=== PATIENT | female | born 1960 | race Caucasian/White ===

== ENCOUNTER → 2017-08-27 | Outpatient (CLI) | payer MEDICARE ==
[2017-07-19 13:30] VITALS: BMI 37.1
[~2017-08-27] MED LIST: ALLO100T70 PO; ALPR-460 PO; AMBIEN; AMI25 PO; AMIT75TA42 PO; ASPI-1471 PO; ASPI-757 PO; ATOR10TA24 PO; CEPH500C24 PO; CHOL100052 PO; CLOB15CR22 TP; CYA1000 PO; CYCL-277 PO; DICL100G39; DOCU-416 PO; GABA-549 PO; GEMF600T91 PO; GOLYTE PO; HCTZ; HYDR-319 PO; HYDR-389 PO; HYDR-4305 PO; HYDR-4309 PO; KET10 PO; LOR7.5/325 PO; MELO-205 PO; MELO-207 PO; MELOXICAM; MEPE50TA29 PO; MORP-18 PO; MORP-46 PO; OMEGA 3; ONDA4TAB PO; PANT40TA65 PO; POLY17PO25 PO; POTASSIUM; QUI20 PO; TOPI-23 PO; TRAZ-156 PO; TRAZ150T8 PO; VENL150T10 PO; VENL75TA98 PO; VITAMINS; [UNRECOGNIZED DRUG - OTHER]
[2017-08-27 10:55] LABS: LDL CHOLESTEROL 41 mg/dl
== END ==
LOC: LAB 10:11
PROVIDERS: ATTEND Nurse Practitioner Family
DX: I49.8 Other specified cardiac arrhythmias (principal); I49.9 Cardiac arrhythmia, unspecified; G89.4 Chronic pain syndrome; E21.5 Disorder of parathyroid gland, unspecified; R74.0 Nonspecific elevation of levels of transaminase and lactic acid dehydrogenase [LDH]; E83.52 Hypercalcemia; E21.3 Hyperparathyroidism, unspecified; R73.01 Impaired fasting glucose; R41.3 Other amnesia; G47.30 Sleep apnea, unspecified; I45.81 Long QT syndrome; E78.00 Pure hypercholesterolemia, unspecified; E21.1 Secondary hyperparathyroidism, not elsewhere classified
CPT/HCPCS: 36415; 82040; 82247; 82310; 82374; 82435; 82465; 82565; 82607; 82947; 83036; 83090; 83718; 83970; 84075; 84132; 84155; 84295; 84450; 84460; 84478; 84520; 86140

== ENCOUNTER → 2017-08-30 | Outpatient (REF) | payer MEDICARE ==
[2017-07-19 13:30] VITALS: BMI 37.1
== END ==
LOC: ZZSENDIN 08:25
PROVIDERS: ATTEND Nurse Practitioner Family
DX: I49.9 Cardiac arrhythmia, unspecified (principal); E83.52 Hypercalcemia; R53.83 Other fatigue
CPT/HCPCS: 83735

== ENCOUNTER → 2017-09-04 | Outpatient (CLI) | payer MEDICARE ==
[2017-07-19 13:30] VITALS: BMI 37.1
== END ==
LOC: RESP 06:38
PROVIDERS: ATTEND Nurse Practitioner Family
DX: J44.9 Chronic obstructive pulmonary disease, unspecified (principal); J98.4 Other disorders of lung
CPT/HCPCS: 94060; 94726; 94729

== ENCOUNTER → 2017-11-26 | Outpatient (CLI) | payer MEDICARE ==
[2017-07-19 13:30] VITALS: BMI 37.1
== END ==
LOC: LAB 11:50
PROVIDERS: ATTEND Nurse Practitioner Family
DX: I49.8 Other specified cardiac arrhythmias (principal); I49.9 Cardiac arrhythmia, unspecified; R74.0 Nonspecific elevation of levels of transaminase and lactic acid dehydrogenase [LDH]; M10.00 Idiopathic gout, unspecified site; E83.52 Hypercalcemia; E21.3 Hyperparathyroidism, unspecified; R73.01 Impaired fasting glucose; K46.9 Unspecified abdominal hernia without obstruction or gangrene; R53.83 Other fatigue; R41.3 Other amnesia; E21.0 Primary hyperparathyroidism; I45.81 Long QT syndrome; E78.00 Pure hypercholesterolemia, unspecified; E55.9 Vitamin D deficiency, unspecified
CPT/HCPCS: 36415; 82040; 82247; 82306; 82310; 82374; 82435; 82565; 82947; 83735; 83970; 84075; 84132; 84155; 84295; 84450; 84460; 84520

== ENCOUNTER → 2017-11-26 | Outpatient (CLI) | payer MEDICARE ==
[2017-07-19 13:30] VITALS: BMI 37.1
--- NOTE | 2017-11-26 13:36 | RADIOLOGY IMAGING REPORT ---
FACILITY: [facility] PATIENT NAME: Marina Scott : 1960 MR: [id number] V: [id number] EXAM DATE: ORDERING PHYSICIAN: FRANCISCO FRANCIS TECHNOLOGIST: Location: [facility] - [place] Patient: Marina Scott : 1960 Visit/Account:[id number] Date of Sevice: 11/26/2017 Exam type: CERVICAL SPINE 2 OR 3 VIEW History: Neck pain, neck surgery in 1999 Comparison: MR C-spine October 27, 2015. Findings: There are postsurgical changes from anterior fusion at C6-7. This moderate disc space narrowing at C 5-6 with anterior osteophyte formation which appears more pronounced when compared to the prior study . Mild disc space narrowing at C7-T1 also appears slightly increased.. This mild disc space narrowi ng at C4-5 relatively unchanged with small anterior osteophytes. There is no evidence of acute fract ure or subluxation or prevertebral soft tissue swelling. IMPRESSION: 1. Postsurgical changes from anterior fusion at C6-7 Increasing disc space narrowing at C5-6 and C7-T1 Report Dictated By: Gertrude Novak MD at 11/26/2017 1:27 PM Report E-Signed By: Gertrude Novak MD at 11/26/2017 1:32 PM WSN:[email or web address]
== END ==
LOC: RAD 12:14
DX: M48.03 Spinal stenosis, cervicothoracic region (principal); Z96.7 Presence of other bone and tendon implants
CPT/HCPCS: 72040

== ENCOUNTER → 2017-12-05 | Outpatient (CLI) | payer MEDICARE ==
[2017-07-19 13:30] VITALS: BMI 37.1
== END ==
LOC: RESP 02:09
PROVIDERS: ATTEND Nurse Practitioner Family
DX: Z02.9 Encounter for administrative examinations, unspecified (principal)

== ENCOUNTER → 2018-01-09 | Outpatient (RCR) | payer MEDICARE ==
[2017-07-19 13:30] VITALS: BMI 37.1
== END ==
LOC: RESP 12-05 09:58
PROVIDERS: ATTEND Nurse Practitioner Family
DX: I49.9 Cardiac arrhythmia, unspecified (principal); R09.02 Hypoxemia; J44.9 Chronic obstructive pulmonary disease, unspecified
CPT/HCPCS: 94618; G0239

== ENCOUNTER → 2018-02-18 | Outpatient (RCR) | payer MEDICARE ==
[2017-07-19 13:30] VITALS: BMI 37.1
== END ==
LOC: RESP 01-14 09:00
PROVIDERS: ATTEND Nurse Practitioner Family
DX: I49.9 Cardiac arrhythmia, unspecified (principal); R09.02 Hypoxemia; J44.9 Chronic obstructive pulmonary disease, unspecified
CPT/HCPCS: 94618; G0239

== ENCOUNTER 2018-03-04 12:30 | Outpatient (RCR) | payer MEDICARE ==
[2017-07-19 13:30] VITALS: BMI 37.1
[~2018-03-04 12:30] MED LIST changes: -GEMF600T91 PO; +GEMF600T92 PO; -TRAZ-156 PO; +TRAZ50TA34 PO
== END 2018-03-27 ==
LOC: RESP 12:30
PROVIDERS: ATTEND Nurse Practitioner Family
DX: I49.9 Cardiac arrhythmia, unspecified (principal); R09.02 Hypoxemia; J44.9 Chronic obstructive pulmonary disease, unspecified
CPT/HCPCS: 94618; G0239

== ENCOUNTER → 2018-03-11 | Outpatient (CLI) | payer MEDICARE ==
[2017-07-19 13:30] VITALS: BMI 37.1
[~2018-03-11] MED LIST changes: +GEMF600T91 PO; -GEMF600T92 PO
--- NOTE | 2018-03-11 16:54 | RADIOLOGY IMAGING REPORT ---
FACILITY: [facility] - [place] PATIENT NAME: Marina Scott : 1960 MR: [id number] V: [id number] EXAM DATE: ORDERING PHYSICIAN: JACQUELINE GUERIN TECHNOLOGIST: Location: [facility] - [place] Patient: Marina Scott : 1960 Visit/Account:[id number] Date of Sevice: 03/11/2018 MRI SHOULDER LEFT W/O CONTRAST HISTORY: Shoulder pain COMPARISON: None TECHNIQUE: Multiplanar/multisequence was obtained through the left shoulder without contrast. Contrast: None FINDINGS: Rotator cuff: Mild tendinosis of the supraspinatus tendon with articular surface fraying as well as m ild intrasubstance tearing at the critical zone. Infraspinatus tendon is normal. Teres minor tendon i s normal. Subscapularis tendon is intact. No full-thickness tear of the rotator cuff. No tendinous re traction or muscular atrophy. Subacromial/subdeltoid fluid: Small amount Joint effusion: Small joint effusion. Moderate fluid within the biceps tendon sheath. Mild synovitis versus tiny loose bodies at the inferior axillary pouch. Biceps tendon: Resides within the bicipital groove and is intact to the labrum without signal abnorma lity. Glenohumeral joint and labrum: Mild thinning of the articular cartilage especially involving the post erior glenoid. No cartilaginous defect. Nondisplaced tearing of the superior labrum just posterior to the biceps anchor without paralabral cyst. AC joint : Moderate proliferative changes with inferior bony spurs. Small amount of fluid at the AC i nterval with mild bone marrow edema. No significant lateral acromial downsloping. Acromium is type II . Bone marrow: Normal Soft tissues: Normal Other findings: None significant IMPRESSION: 1. Mild tendinosis of the supraspinatus tendon with articular surface fraying and mild intrasubstance tearing. No full-thickness tear of the rotator cuff. 2. Small amount of subacromial/subdeltoid fluid. 3. Mild chondrosis at the glenohumeral joint with nondisplaced degenerative tearing of the superior l abrum. 4. Small joint effusion with questionable tiny loose bodies versus focal synovitis at the inferior ax illary pouch Report Dictated By: Bret Baumann MD at 03/11/2018 4:44 PM Report E-Signed By: Bret Baumann MD at 03/11/2018 4:50 PM WSN:[id number]
== END ==
LOC: MRI 01:57
PROVIDERS: ATTEND Clinical Nurse Specialist Family Health
DX: M70.812 Other soft tissue disorders related to use, overuse and pressure, left shoulder (principal); M25.412 Effusion, left shoulder

== ENCOUNTER → 2018-04-24 | Outpatient (CLI) | payer MEDICARE ==
[2017-07-19 13:30] VITALS: BMI 37.1
[~2018-04-24] MED LIST changes: -GEMF600T91 PO; +GEMF600T92 PO
== END ==
LOC: LAB 11:39
PROVIDERS: ATTEND Nurse Practitioner Family
DX: R63.0 Anorexia (principal); I49.8 Other specified cardiac arrhythmias; I49.9 Cardiac arrhythmia, unspecified; E21.5 Disorder of parathyroid gland, unspecified; R74.0 Nonspecific elevation of levels of transaminase and lactic acid dehydrogenase [LDH]; Z82.62 Family history of osteoporosis; E83.52 Hypercalcemia; E21.3 Hyperparathyroidism, unspecified; E21.1 Secondary hyperparathyroidism, not elsewhere classified; E21.0 Primary hyperparathyroidism; E55.9 Vitamin D deficiency, unspecified
CPT/HCPCS: 36415; 82040; 82247; 82306; 82310; 82374; 82435; 82565; 82947; 83735; 83970; 84075; 84132; 84155; 84295; 84443; 84450; 84460; 84520

== ENCOUNTER → 2018-05-12 | Outpatient (CLI) | payer MEDICARE ==
[2017-07-19 13:30] VITALS: BMI 37.1
[~2018-05-12] MED LIST changes: +GADOBENATE 529MG/1ML 15ML VIAL IVP ONE
--- NOTE | 2018-05-12 12:06 | RADIOLOGY IMAGING REPORT ---
[place] [facility] [place] Marina [place] : 1960 MR: [id number] V: [id number] EXAM DATE: ORDERING PHYSICIAN: JACQUELINE GUERIN TECHNOLOGIST: Location: [facility] - [place] Patient: Marina Scott : 1960 Visit/Account:[id number] Date of Sevice: 05/12/2018 L SPINE W W/O CONTRAST COMPARISON: Views of the lumbar spine dated May 10, 2010 Additional pertinent history: Low back pain and hip pain. Technique: Multiplanar multisequence lumbar spine MRI was performed with and without gadolinium enhan cement. Contrast: 15 ml of MultiHance FINDINGS: Disclaimer: The examination is significantly limited at the levels of L4-L5 and L5-S1 related to meta llic artifact. Postoperative changes: Patient status post posterior interbody fusion of L4-S1. Vertebral body heights and alignment: Minimal grade 1 anterior listhesis of L3 on L4. Vertebral marrow signal: Not well evaluated at the levels of L4 on L5. Marrow signal is normal invol ving the upper lumbar spine. Distal thoracic cord and conus: Negative. The conus ends at T12-L1. Surrounding soft tissues: Negative. Inspection of the disc spaces reveal the following: L5-S1: Not well evaluated secondary to metallic artifact. L4-L5: Not well evaluated secondary to metallic artifact. L3-L4: Slightly limited secondary to metallic artifact however no significant disc bulge or disc prot rusion. No significant canal or neural foraminal narrowing. L2-L3: Circumferential disc bulging with facet hypertrophic changes. No significant canal or neural foraminal narrowing. L1-L2: Minimal circumferential disc bulging with facet hypertrophic changes. No significant canal or neural foraminal narrowing. T12-L1: Negative. Pathologic enhancement: Negative. IMPRESSION: 1. Postoperative changes involving the lower lumbar spine limiting evaluation at the levels of L4-L5 and L5-S1. 2. Mild spondylitic change about these levels without significant canal or neural foraminal narrowin g. Report Dictated By: Robbie Saavedra MD at 05/12/2018 11:58 AM Report E-Signed By: Robbie Saavedra MD at 05/12/2018 12:03 PM WSN:[id number]
== END ==
LOC: MRI 05:11
PROVIDERS: ATTEND Clinical Nurse Specialist Family Health
DX: M47.896 Other spondylosis, lumbar region (principal); Z98.890 Other specified postprocedural states
CPT/HCPCS: 72158; A9577

== ENCOUNTER → 2018-06-05 | Outpatient (CLI) | payer MEDICARE ==
[2017-07-19 13:30] VITALS: BMI 37.1
[~2018-06-05] MED LIST changes: -GADOBENATE 529MG/1ML 15ML VIAL IVP ONE; -HYDR-4305 PO; -HYDR-4309 PO; +HYDR-627 PO; +HYDR-653 PO
== END ==
LOC: LAB 08:12
PROVIDERS: ATTEND Nurse Practitioner Family
DX: E21.1 Secondary hyperparathyroidism, not elsewhere classified (principal); R25.2 Cramp and spasm
CPT/HCPCS: 36415; 82040; 82247; 82310; 82374; 82435; 82565; 82947; 83735; 84075; 84100; 84132; 84155; 84295; 84450; 84460; 84520

== ENCOUNTER → 2018-10-21 | Outpatient (CLI) | payer MEDICARE ==
[2017-07-19 13:30] VITALS: BMI 37.1
[~2018-10-21] MED LIST changes: -GEMF600T92 PO; +GEMF600T96 PO
--- NOTE | 2018-10-21 17:15 | RADIOLOGY IMAGING REPORT ---
FACILITY: [facility] - [place] PATIENT NAME: Marina Scott : 1960 MR: [id number] V: [id number] EXAM DATE: ORDERING PHYSICIAN: SHARON BIRD TECHNOLOGIST: Location: [facility] Patient: Marina Scott : 1960 Visit/Account:[id number] Date of Sevice: 10/21/2018 KIDNEYS EXAMINATION: Renal ultrasound. History: Bladder emptying insufficiently COMPARISON STUDIES: CT abdomen pelvis August 03, 2016 FINDINGS: Kidneys: Right kidney- 9.2 x 5 x 6 cm Left kidney- 9.5 x 4.3 x 4.9 cm Uniform and symmetric blood flow in each kidney by Doppler ultrasound. Hydronephrosis: none Resistive index on the right 0.7 on the left 0.65 Bladder: Prevoid volume 189 mL. Post void residual 5.3 mm. Bilateral ureteral jets are present. Abdominal aorta and IVC: IVC was obscured by bowel gas. The aorta appeared patent The endometrial stripe appears borderline thickened at 5.5 mm IMPRESSION: Normal renal ultrasound other than incidental note of borderline thickening of the endometrium at 5.5 mm Report Dictated By: Gertrude Novak MD at 10/21/2018 5:08 PM Report E-Signed By: Gertrude Novak MD at 10/21/2018 5:10 PM WSN:[email or web address]
== END ==
LOC: US 02:24
PROVIDERS: ATTEND Nurse Practitioner Family
DX: R33.9 Retention of urine, unspecified (principal); E87.8 Other disorders of electrolyte and fluid balance, not elsewhere classified; R73.01 Impaired fasting glucose; R53.81 Other malaise; E53.8 Deficiency of other specified B group vitamins; E55.9 Vitamin D deficiency, unspecified
CPT/HCPCS: 76705

== ENCOUNTER → 2018-10-22 | Outpatient (CLI) | payer MEDICARE ==
[2017-07-19 13:30] VITALS: BMI 37.1
[2018-10-22 09:53] LABS: PLATELET COUNT, AUTOMATED 274 K/uL (150-450)
== END ==
LOC: LAB 09:34
PROVIDERS: ATTEND Nurse Practitioner Family
DX: E55.9 Vitamin D deficiency, unspecified (principal); E53.8 Deficiency of other specified B group vitamins; E78.00 Pure hypercholesterolemia, unspecified; R53.81 Other malaise; R73.01 Impaired fasting glucose; E87.8 Other disorders of electrolyte and fluid balance, not elsewhere classified
CPT/HCPCS: 36415; 82040; 82247; 82306; 82310; 82374; 82435; 82465; 82565; 82607; 82947; 83036; 83718; 84075; 84132; 84155; 84295; 84443; 84450; 84460; 84478; 84520; 85025

== ENCOUNTER → 2018-11-05 | Outpatient (CLI) | payer MEDICARE ==
[2017-07-19 13:30] VITALS: BMI 37.1
--- NOTE | 2018-11-05 11:35 | RADIOLOGY IMAGING REPORT ---
FACILITY: [facility] PATIENT NAME: Marina Scott : 1960 MR: [id number] V: [id number] EXAM DATE: ORDERING PHYSICIAN: SHARON BIRD TECHNOLOGIST: [place] [facility] [place]: Marina Scott : 1960 Visit/Account:[id number] Date of Sevice: 11/05/2018 TRANSVAGINAL NON-OB HISTORY: Thickened endometrium TECHNIQUE: Transvaginal ultrasound pelvis. COMPARISON: Pelvic ultrasound May 03, 2017 FINDINGS: Uterus: ; 5.6 cm length x 3 cm AP x 3.5 cm transverse. Myometrium: There is a four mm cyst posterior body of the uterus. Endometrium: ; double thickness 11 mm. Cervix: Nabothian cysts. Ovaries: Right - not identified Left - not identified Adnexa: Grossly unremarkable. Free pelvic fluid: None. IMPRESSION: Endometrial double thickness is 11 mm which is above normal for postmenopausal woman Neither ovary visualized 4 mm cyst posterior aspect of the uterine body Nabothian cysts Report Dictated By: Gertrude Novak MD at 11/05/2018 11:27 AM Report E-Signed By: Gertrude Novak MD at 11/05/2018 11:31 AM WSN:[email or web address]
== END ==
LOC: US 10-31 02:17
PROVIDERS: ATTEND Nurse Practitioner Family
DX: N85.00 Endometrial hyperplasia, unspecified (principal); N85.8 Other specified noninflammatory disorders of uterus; N88.8 Other specified noninflammatory disorders of cervix uteri
CPT/HCPCS: 76830

== ENCOUNTER → 2018-11-14 | Outpatient (CLI) | payer MEDICARE ==
[2017-07-19 13:30] VITALS: BMI 37.1
[~2018-11-14] MED LIST changes: +REGADENOSON 0.4 MG/5 ML SYR ONE; +SINCALIDE 5 MCG VIAL INJ ONE; +WATER FOR INJ,STERILE 20 ML 20 ML ONE
--- NOTE | 2018-11-14 16:35 | RADIOLOGY IMAGING REPORT ---
FACILITY: [facility] - [place] PATIENT NAME: Marina Scott : 1960 MR: [id number] V: [id number] EXAM DATE: ORDERING PHYSICIAN: SHARON BIRD TECHNOLOGIST: Location: [facility] - [place] Patient: Marina Scott : 1960 Visit/Account:[id number] Date of Sevice: 11/14/2018 EXAMINATION: Single isotope SPECT imaging with regadenoson infusion and gated SPECT imaging. DATE OF EXAMINATION: 11/14/2018. DATE OF INTERPRETATION: 11/14/2018. REQUESTING PHYSICIAN: SHARON BIRD. INDICATION: The patient is a 58-year-old female evaluated for chest discomfort. PROCEDURE: After informed consent the patient received an intravenous injection of 12.0 mCi of Tc-99 m sestamibi followed at an appropriate time interval by rest imaging. The patient then subsequently received an intravenous infusion of 0.4 mg of regadenoson per protocol without complication. Resting heart rate was 70 bpm with a peak heart rate of 105 bpm. Blood pressure at rest was 113 / 70 and fo llowing infusion was 146 / 72. Baseline EKG demonstrates sinus rhythm with occasional PACs. There w ere no EKG changes of ischemia following infusion. Symptoms were nonspecific, the patient did mentio n some discomfort in the chest with Lexiscan infusion. The patient then received an intravenous inje ction of 30.0 mCi of Tc-99m sestamibi followed by stress imaging. RAW DATA: Examination of the summed raw data revealed a adequate quality study. MYOCARDIAL PERFUSION: The tomographic images demonstrate decreased radiotracer uptake in the apex on resting images, stress prone imaging shows normal radiotracer uptake. GATED IMAGES: The gated images demonstrate normal LV systolic function, LVEF is 76%. IMPRESSION: 1. No ischemic ECG changes with Lexiscan. 2. Normal myocardial perfusion scan. 3. Normal LV systolic function; LVEF 76%. 4. Based on the results of this exam, the patient appears to be at low short-term risk, however inter mediate long-term risk for future cardiovascular events given the need for Lexiscan as opposed to exe rcise stress testing. Report Dictated By: Bossman Geiger at 11/14/2018 4:15 PM Report E-Signed By: Bossman Geiger at 11/14/2018 4:31 PM WSN:[id number]
--- NOTE | 2018-11-15 06:25 | RT STRESS TEST REPORT ---
FACILITY[place] [facility] [place] PATIENT NAME: LUIS CASTILLO : [id number] MR: [id number] V: [id number] EXAM DATE: ORDERING PHYSICIAN: SHARON BIRD TECHNOLOGIST: Betty Acquisition Time: 2018-11-14 14:40:15 Total Exercise Time: 00:01:00 Test Indications: Chest Discomfort Medications: SEE NUCLEAR MED SHEET Protocol: LEXISCAN Max HR: 105 BPM 64% of Pred: 164 BPM Max BP: 146/072 mmHG Max Work Load: 1.0 METS Confirmed by AGA DAY ([id number]) on 11/15/2018 6:25:14 AM Referred By: Overread By: AGA DAY
== END ==
LOC: NUC 02:05
PROVIDERS: ATTEND Nurse Practitioner Family
DX: R07.9 Chest pain, unspecified (principal); R53.83 Other fatigue; R06.00 Dyspnea, unspecified
CPT/HCPCS: 78452; 93017; A9500; J2785